=== PATIENT | male | born 1955 | race Caucasian/White ===

== ENCOUNTER 2019-03-16 11:38 | Day surgery (SDC) | payer OTHER ==
[~2019-03-16 11:38] MED LIST: Buffered Lidocaine 1% SYRIN* 1 ML/SYRINGE INTRADERM ONE; Lactated Ringers 1000 ML Bag* 1,000 ML IV SCH
[2019-03-16] MEDS ORDERED: Buffered Lidocaine 1% SYRIN* 1 ML/SYRINGE INTRADERM ONE (13:16)
[2019-03-16] MEDS ORDERED: fentaNYL* 50 MCG/ML 2 ML VIAL (100 MCG VIAL) ONE (14:08)
[2019-03-16] MEDS ORDERED: Midazolam* 1 MG/ML 5 ML VIAL (5 MG) ONE (14:08)
[2019-03-16] MEDS ORDERED: Propofol* 10 MG/ML 20 ML BTL ONE (14:18)
[2019-03-16 15:17] VITALS: BP 125/84
--- NOTE | 2019-03-17 00:30 | PRO ---
CC: Dr. Zulema Jefferson * DATE OF PROCEDURE: 03/16/19 - [facility] PROCEDURE: Colonoscopy with cold snare and jumbo biopsy polypectomy. REFERRING PROVIDER: Dr. Zulema Jefferson. INDICATION: Positive Cologuard. Last colonoscopy in 2007 was normal. The patient recalls waking up during the procedure and feeling quite uncomfortable. Decision was made to pursue case with anesthesia. MEDICATIONS GIVEN: By Anesthesia. DESCRIPTION OF PROCEDURE: Full disclosure of risks was reviewed with the patient as detailed on the consent form. The patient was placed in the left lateral decubitus position and monitored with continuous pulse oximetry, capnography, interval blood pressure monitoring, and direct observation. After anorectal examination was performed, the adult colonoscope was inserted into the rectum and slowly advanced forward to the level of the terminal ileum. Complete views of the cecum were obtained, including the medial wall between the IC valve and the appendiceal orifice. Quality of the prep was good. Photodocumentation of landmarks obtained. Careful inspection was made as the colonoscope was withdrawn. Retroflexion was performed in the rectum. Findings and interventions are described below. FINDINGS: Anorectal exam was unremarkable. The scope was inserted into the rectum and slowly advanced forward to the cecum. Once in the cecum, the terminal ileum was intubated x5 cm. Ileal mucosa was normal in appearance. The scope was then withdrawn back into the cecum and then slowly throughout the length of the colon. In the ascending colon, there was a 5 mm sessile polyp removed with cold snare. In the sigmoid colon, there were two polyps. The first polyp measured 4 mm and was removed with cold snare. The second polyp was 3 mm and was removed with jumbo biopsy forceps. Both polyps were hyperplastic appearing. Retroflexion in the rectum revealed hemorrhoids and hypertrophied anal papillae. The scope was then withdrawn from the patient. The patient tolerated the procedure well and was recovered in the GI recovery area. IMPRESSION: 1. Complete colonoscopy to terminal ileum. 2. Three small polyps removed as above. 3. Internal hemorrhoids. Favor these as a potential source for the positive Cologuard. FOLLOWUP: 1. Await pathology. 2. Repeat colonoscopy in 3 to 5 years depending on path. Thank you very much for this referral. [id number]/[facility] #: [id number] [facility]ITALYadira
== END 2019-03-16 15:54 | disposition home or self-care (01) ==
LOC: OR 11:38
PROVIDERS: ATTEND Internal Medicine Gastroenterology
DX: R19.5 Other fecal abnormalities (principal); K63.5 Polyp of colon; K64.8 Other hemorrhoids; D18.09 Hemangioma of other sites; G89.4 Chronic pain syndrome; G47.33 Obstructive sleep apnea (adult) (pediatric); Z86.19 Personal history of other infectious and parasitic diseases; F41.8 Other specified anxiety disorders; G47.00 Insomnia, unspecified
CPT/HCPCS: 88305; J2250; J2704; J3010